=== PATIENT | female | born 1945 | race Two or more races ===

== ENCOUNTER → 2016-09-30 | Outpatient (CLI) | payer OTHER ==
--- NOTE | 2016-09-30 15:43 | RADRPT ---
PROCEDURE: XR Right hip and pelvis. CLINICAL INDICATION: Right hip pain. Pelvic pain. TECHNIQUE: Two views. Frontal pelvis and lateral right hip. COMPARISON: No prior studies are available for comparison. FINDINGS: There is no fracture or dislocation. The soft tissues are normal. There are mild degenerative changes of both hips with small osteophytes noted. There is no joint space narrowing or deformity. There is no lytic or blastic lesion. The sacroiliac joints are unremarkable. IMPRESSION: 1. Mild degenerative changes of both hips. 2. Otherwise unremarkable images of the pelvis and right hip. RPTAT: QQ .Maury Franco MD, MD Date Time Electronically viewed and signed by .Maury Franco MD, MD on 09/30/2016 15:43 .R/
--- NOTE | 2016-09-30 19:32 | HKNOTE ---
DATE OF SERVICE: 09/30/2016 MAIN COMPLAINT: Pain in the right "hip." HISTORY OF MAIN COMPLAINT: The patient is a 71-year-old female who has had 2 recent falls. She fel l in December when she tripped in a parking lot. She was able to get up and walk. She did not see a ph ysician. Since then, she has had pain both her "hips" but worse on the right side. She also had pa in in both knees. She took a second fall 3 weeks ago when she slipped and fell in the rain, landing on both buttocks. She also injured her left wrist. She was able to get up and walk. The patient saw Sports Medicine, ____. He told her that the left leg is 5 mm shorter than the r ight leg. PRESENT COMPLAINTS: Pain in the right buttocks. She is not taking any medications for the pain. T he pain does not radiate up or down her leg. She states "I've always had back pain, but now the sloan n shoots from my hip to the lower back and my thigh." It's worse since her recent fall. She mainly gets pain at the end of the day. Her pain is aggravated by only certain positions in bed. She has a long history of problems with her lower back since she was 23 years old and never any injury to h er back. She had an MRI scan of the lumbar spine about 8 years ago. On a level surface, she can wa lk as far as she likes. The pain in the back buttock area occasionally radiates down in the area of the greater trochanter and down her leg on the right side. Occasionally the pain radiates to the g reater trochanter and down to the knee. Occasionally the pain radiates all the way down the leg to the ankle. She has no numbness or tingling in either leg. She gets pain in the right knee, and the re are no other knee symptoms involved. She limps some of the time. She is able to clip her toenails and tie her shoelaces. PAST ORTHOPEDIC HISTORY: Negative. PAST SURGICAL HISTORY: No previous orthopedic operations. PRIOR CORTISONE INTAKE: None. ALCOHOL INTAKE: None. WORK STATUS: The patient works at [employer]. 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 PAST MEDICAL HISTORY: Negative. PAST SURGICAL HISTORY: Bunions, septum removal, multiple foot surgeries. FAMILY HISTORY: Noncontributory. SYSTEMS REVIEW: Varicose veins, gait disturbance, has hemorrhoids, otherwise negative. HABITS: The patient does not smoke or drink alcoholic beverages. PHYSICAL EXAMINATION: GENERAL: The patient is a fit-looking 71-year-old female. She seems to be alert for time and place . Orientation is good. GAIT: She walks with a slight antalgic gait. BACK: Quite marked pain on attempted lateral flexion of the lumbar spine as well as marked pain on extension of the lumbar spine but especially more so on lateral flexion to the right. Inspection of the spine reveals no list. There is no lumbar paraspinal muscle spasm. The pelvis is level. Facet s tress test is negative bilaterally. Palpation of the spine demonstrates no tenderness of the spinous processes, facet joints, sacroiliac joint, sciatic notch, or posterior thigh. HIPS: No tenderness anywhere around either hip, completely normal. NEUROLOGIC: Motor examination reveals no muscle deficit in the lower extremities. Deep tendon refle xes in the lower extremities: Right knee jerk +, left knee jerk +, right ankle jerk +, left ankle j erk negative. Straight leg raising is negative bilaterally at 80 degrees. Lasegue and MORRIS tests ar e negative. IMAGING: Plain x-rays of the patient's pelvis and hips obtained today are entirely normal. DIAGNOSIS: Right-sided sciatica. MANAGEMENT: The patient advised that she needs an MRI scan of the lumbar spine to diagnose sciatica . Further treatment will depend upon the findings. She will be seen again after she has had the MR I scan. Otherwise, she plans to move back to [place] to see her doctors there. Dictated By: FARAZ SHARMA/CHARISSA Conf#: [id number] DID#: [id number]
== END | disposition home or self-care (01) ==
LOC: HKI 15:10
DX: M54.31 Sciatica, right side (principal)
CPT/HCPCS: 73502; G0463

== ENCOUNTER → 2016-10-21 | Outpatient (CLI) | payer OTHER ==
--- NOTE | 2016-10-22 10:37 | RADRPT ---
PROCEDURE: XR bilateral knees. CLINICAL INDICATION: Knee pain TECHNIQUE: AP weightbearing, lateral weightbearing and sunrise views of each knee are available fo r review. COMPARISON: None available FINDINGS: Right knee: There is mild osteoarthrosis involving the right medial tibial femoral compartment (minimal joint sp carloz narrowing) and the patellofemoral compartment (minimal osteophytosis). Left knee: There is mild osteoarthrosis involving the left medial tibial femoral compartment (minimal joint spa ce narrowing) and the patellofemoral compartment (minimal osteophytosis). There is otherwise normal mineralization, architecture and alignment. No fractures are identified. No osseous lesions are identified. The soft tissues are unremarkable. IMPRESSION: Mild osteoarthrosis involving the right medial tibial femoral compartment (minimal joint space narro wing) and the patellofemoral compartment (minimal osteophytosis). Mild osteoarthrosis involving the left medial tibial femoral compartment (minimal joint space narrow ing) and the patellofemoral compartment (minimal osteophytosis). . RPTAT: HGDB .Amrit Taveras MD, Date Time Electronically viewed and signed by .Amrit Taveras MD, on 10/22/2016 10:37 .B/
== END | disposition home or self-care (01) ==
LOC: HKI 14:26
DX: M54.31 Sciatica, right side (principal)
CPT/HCPCS: 73562; G0463